=== PATIENT | male | born 1960 | race Caucasian/White ===

== ENCOUNTER 2020-07-10 17:50 | Emergency (ER) | payer BC ==
[2020-07-10] MEDS ORDERED: Morphine 2 MG/ML SYRINGE IVPUSH ONE ×2 (18:10→19:37)
[2020-07-10] MEDS ORDERED: Nitroglycerin 0.4 MG Tab.SL SL ONE (18:10)
[2020-07-10] MEDS ORDERED: Aspirin 81 MG Tab.Chew PO ONE (18:10)
[2020-07-10] MEDS: Nitroglycerin 0.4 MG Tab.SL ONE ×2 (18:14→19:36)
[2020-07-10] MEDS: Aspirin 81 MG Tab.Chew ONE ×2 (18:14→19:37)
[2020-07-10] MEDS: Morphine 2 MG/ML SYRINGE ONE ×2 (18:15→19:36)
[2020-07-10] MEDS ORDERED: Heparin Sodium 5,000 Units/ML Vial IVPUSH ONE (18:17)
[2020-07-10] MEDS ORDERED: Sodium Chloride 0.9% 1,000 ML ONE (18:22)
--- NOTE | 2020-07-10 18:24 | EDM.PDOC ---
ED HPI GENERAL MEDICAL PROBLEM - General Chief Complaint: Chest Pain Stated Complaint: fevers, short of breath, elevated troponin Time Seen by Provider: 07/10/20 18:14 Source of Information: Reports: Patient History Limitations: Reports: No Limitations Bilateral Lower Breast Pain Score (Numeric/FACES): 7 - Related Data Allergies Allergy/AdvReac Type Severity Reaction Status Date / Time No Known Allergies Allergy Verified 07/10/20 17:44 ED ROS GENERAL - Review of Systems Review Of Systems: See Below ED EXAM, GENERAL - Physical Exam Exam: See Below General Appearance: Alert, WD/WN, No Apparent Distress Respiratory/Chest: No Respiratory Distress, Decreased Breath Sounds Cardiovascular: Normal Peripheral Pulses, Regular Rate, Rhythm, No Edema, No Murmur Neurological: Alert, Oriented Psychiatric: Normal Affect, Normal Mood Skin Exam: Warm, Dry, Intact EKG INTERPRETATION EKG Date: 07/10/20 Time: 19:42 (repeat EKG, no changes) Course - Vital Signs Last Recorded V/S: Last Vital Signs Temp 102 F H 07/10/20 19:19 Pulse 82 07/10/20 19:19 Resp 16 07/10/20 19:19 BP 152/92 H 07/10/20 19:19 Pulse Ox 95 07/10/20 19:19 - Orders/Labs/Meds Orders: Active Orders 24 hr Category Date Time Status CULTURE BLOOD [BC] Stat Lab 07/10/20 19:10 Received CULTURE BLOOD [BC] Stat Lab 07/10/20 19:23 Received Blood Culture x2 Reflex Set [OM.PC] Stat Oth 07/10/20 18:37 Ordered Labs: Laboratory Tests 07/10/20 07/10/20 Range/Units 17:50 19:10 Sodium 140 (136-145) mmol/L Potassium 3.9 (3.3-5.3) mmol/L Chloride 103 (98-115) mmol/L Carbon Dioxide 27.6 (21.0-32.0) mmol/L Anion Gap 13.3 (5-15) mmol/L BUN 10 (6-25) mg/dL Creatinine 0.97 (0.51-1.17) mg/dL Est Cr Clr Drug Dosing 88.89 mL/min Estimated GFR (MDRD) > 60 mL/min Glucose 135 H (75 - 99) mg/dL Lactic Acid 0.7 (0.4-2.0) mmol/L Calcium 8.8 (8.7-10.3) mg/dL Total Bilirubin 0.3 (0.2-1.0) mg/dL AST 19 (15-37) U/L ALT 50 (12-78) U/L Alkaline Phosphatase 71 (46-116) IU/L Total Protein 7.4 (6.4-8.2) g/dL Albumin 4.10 (3.00-4.80) g/dL Meds: Medications Discontinued Medications Generic Name Dose Route Start Last Admin Trade Name Freq PRN Reason Stop Dose Admin Acetaminophen 1,000 mg 07/10/20 19:05 07/10/20 19:05 Tylenol Extra Strength PO 07/10/20 19:06 1,000 mg ONETIME ONE Administration Acetaminophen Confirm 07/10/20 19:03 07/10/20 19:10 Tylenol Extra Strength Administered 07/10/20 19:04 Not Given Dose 1,000 mg .ROUTE .STK-MED ONE Aspirin Confirm 07/10/20 18:03 07/10/20 19:37 Aspirin Administered 07/10/20 18:04 Not Given Dose 324 mg .ROUTE .STK-MED ONE Aspirin 324 mg 07/10/20 18:10 07/10/20 18:14 Aspirin PO 07/10/20 18:11 324 mg ONETIME ONE Administration Ceftriaxone Sodium 1 gm 07/10/20 18:39 07/10/20 19:06 Rocephin IVPUSH 07/10/20 18:40 1 gm ONETIME ONE Administration Doxycycline Hyclate 100 mg 07/10/20 18:38 07/10/20 19:06 Vibramycin PO 07/10/20 18:39 100 mg ONETIME ONE Administration Heparin Sodium (Porcine) 4,000 units 07/10/20 18:17 07/10/20 18:26 Heparin Sodium IVPUSH 07/10/20 18:18 4,000 units ONETIME ONE Administration Heparin Sodium/Dextrose 250 mls @ 10 mls/hr 07/10/20 18:30 07/10/20 18:27 IV 1,000 units/hr TITRATE ASHISH 10 mls/hr Administration Protocol 1,000 UNITS/HR Sodium Chloride 1,000 mls @ 20 mls/hr 07/10/20 18:30 07/10/20 19:06 Normal Saline IV 20 mls/hr ASDIRECTED ASHISH Administration Sodium Chloride Confirm 07/10/20 18:22 07/10/20 18:34 Normal Saline Administered 07/10/20 18:23 Not Given Dose 1,000 mls @ as directed .ROUTE .STK-MED ONE Morphine Sulfate Confirm 07/10/20 18:05 07/10/20 19:36 Morphine Administered 07/10/20 18:06 Not Given Dose 2 mg .ROUTE .STK-MED ONE Morphine Sulfate 2 mg 07/10/20 19:37 07/10/20 19:38 Morphine IVPUSH 07/10/20 19:38 Not Given ONETIME ONE Morphine Sulfate 2 mg 07/10/20 18:10 07/10/20 18:15 Morphine IVPUSH 07/10/20 18:11 2 mg ONETIME ONE Administration Nitroglycerin Confirm 07/10/20 18:06 07/10/20 19:36 Nitrostat Administered 07/10/20 18:07 Not Given Dose 0.4 mg .ROUTE .STK-MED ONE Nitroglycerin 0.4 mg 07/10/20 18:10 07/10/20 18:14 Nitrostat SL 07/10/20 18:11 0.4 mg ONETIME ONE Administration - Re-Assessments/Exams Free Text/Narrative Re-Assessment/Exam: 07/10/20 18:32 ct scan chest returned. report pneumonia LLL, diminished lung lower sounds, sp02 96%, symptoms of inability to take a deep breath, chills starting today and fever now 100.4f. 07/10/20 18:33 07/10/20 19:38 add on labs and abx given, patient stable, still have mild CP, despite Nitro no improvement, does have a fever 102.4f, 1 gram of tylenol po given, heparin infusing, EMS are on their way to transfer patient, repeat EKG. Free Text/Narrative Re-Assessment/Exam: 07/10/20 19:30 received ordered from accepting food server as soon as the CT scan report re turned, blood cultures x2 ordered, sputum culture ordered, 100 mg doxy po x1 and 1 gram ceftriaxone IVP to be given, ASA 325 mg, lactic acid. 07/10/20 19:34 07/10/20 19:44 negative lactic acid. Free Text/Narrative Re-Assessment/Exam: 07/10/20 19:42 please see Christy Olson P for ROS and Physical exam. Departure - Departure Time of Disposition: 18:10 ([facility]) Disposition: DC/Tfer to [facility] Reason for Transfer *Q: Other Condition: Good, Undetermined Clinical Impression: NSTEMI (non-ST elevated myocardial infarction) Pneumonia Qualifiers: Pneumonia type: due to unspecified organism Laterality: unspecified laterality Lung location: unspecified part of lung Qualified Code(s): J18.9 - Pneumonia, unspecified organism Referrals: Christy Taylor PA-C [Primary Care Provider] - Sepsis Event Note (ED) - Evaluation Reason for Ruling Out Sepsis: fever, chills, pneumonia on CT scan of chest, elevated troponin. - Problem List Review Problem List Initiated/Reviewed/Updated: Yes - My Orders Last 24 Hours: My Active Orders 07/10/20 18:37 Blood Culture x2 Reflex Set [OM.PC] Stat 07/10/20 19:10 CULTURE BLOOD [BC] Stat 07/10/20 19:23 CULTURE BLOOD [BC] Stat - Assessment/Plan Last 24 Hours: My Active Orders 07/10/20 18:37 Blood Culture x2 Reflex Set [OM.PC] Stat 07/10/20 19:10 CULTURE BLOOD [BC] Stat 07/10/20 19:23 CULTURE BLOOD [BC] Stat
[2020-07-10] MEDS ORDERED: Heparin Sodium/D5W 250 ML IV SCH (18:30)
[2020-07-10] MEDS ORDERED: Sodium Chloride 0.9% 1,000 ML IV SCH (18:30)
[2020-07-10] MEDS ORDERED: cefTRIAXone 1 GM Vial IVPUSH ONE (18:39)
[2020-07-10] MEDS ORDERED: Acetaminophen 500 MG Tab ONE (19:03)
[2020-07-10] MEDS ORDERED: Acetaminophen 500 MG Tab PO ONE (19:05)
[2020-07-10 19:17] LABS: ANION GAP 13.3 mmol/L (5-15); CHLORIDE,CL 103 mmol/L (98-115); SODIUM,NA 140 mmol/L (136-145)
== END 2020-07-10 19:54 | disposition critical access hospital (66) ==
LOC: KA.ED 17:50
DX: I21.4 Non-ST elevation (NSTEMI) myocardial infarction (principal); J18.9 Pneumonia, unspecified organism
CPT/HCPCS: 36415; 80053; 83605; 87040; 87077; 93005; 96365; 96375; 99284; 99285-25; A9270-GY; J0696; J1644; J2270; J7030

== ENCOUNTER 2021-09-04 08:53 | Day surgery (SDC) | payer BC ==
[2021-09-04] MEDS ORDERED: Sodium Chloride 0.9% 1,000 ML IV SCH (09:00)
[2021-09-04] MEDS ORDERED: Sodium Chloride 0.9% 10 ML Syringe FLUSH PRN (09:00)
[2021-09-04] MEDS ORDERED: Midazolam 1 MG/ML 2 ML SDV ONE (10:18)
--- NOTE | 2021-09-04 10:18 | PCM.PN ---
- General Info Date of Service: 09/04/21 - Review of Systems Systems Review Comment:: 60-year-old male referred for his initial screening colonoscopy. He notes his bowels have been moving satisfactorily but does state that he has had some hemorrhoid bleeding in the past. He denies any known family history of colon cancer. Patient's recent history and physical is reviewed and no significant changes are noted. I have discussed the proposed colonoscopy with the patient. Risks such as but not limited to bleeding and GI injury reviewed. He agrees to proceed. - Patient Data Vitals - Most Recent: Last Vital Signs Temp 97.8 F 09/04/21 09:04 Pulse 57 L 09/04/21 09:04 Resp 16 09/04/21 09:04 BP 153/88 H 09/04/21 09:04 Pulse Ox 95 09/04/21 09:04 Weight - Most Recent: 97.522 kg Lab Results Last 24 Hours: Laboratory Results - last 24 hr 09/04/21 Range/Units 09:15 POC Glucose 140 (70-140) mg/dL Med Orders - Current: Current Medications Sodium Chloride (Normal Saline) 1,000 mls @ 50 mls/hr IV ASDIRECTED ASHISH Last Admin: 09/04/21 09:18 Dose: 50 mls/hr Documented by: Sodium Chloride (Sodium Chloride 0.9% 10 Ml Syringe) 10 ml FLUSH Q8HR PRN PRN Reason: keep vein open - Patient Data Lab Results Last 24 hrs: Laboratory Results - last 24 hr 09/04/21 Range/Units 09:15 POC Glucose 140 (70-140) mg/dL Sepsis Event Note - Focused Exam Vital Signs: Vital Signs Temp Pulse Resp BP Pulse Ox 09/04/21 09:04 97.8 F 57 L 16 153/88 H 95 - Problem List Review Problem List Initiated/Reviewed/Updated: Yes - My Orders Last 24 Hours: My Active Orders 09/03/21 14:19 Resuscitation Status Routine 09/04/21 Breakfast Nothing Per Oral Diet [DIET] 09/04/21 09:00 Patient to Empty Bladder [RC] ASDIRECTED Peripheral IV Care [RC] . DIRECTED Sodium Chloride 0.9% [Normal Saline] 1,000 ml IV ASDIRECTED Sodium Chloride 0.9% [Saline Flush] 10 ml FLUSH Q8HR PRN Peripheral IV Insertion Adult [OM.PC] Routine 09/04/21 10:00 Verify Patient Consent Obtain [RC] ASDIRECTED - Assessment Assessment:: Colon cancer screening - Plan Plan:: Colonoscopy
[2021-09-04] MEDS ORDERED: Propofol 200 MG/20 ML SDV ONE (10:19)
--- NOTE | 2021-09-04 10:55 | PCM.OPNOTE ---
- General Post-Op/Procedure Note Date of Surgery/Procedure: 09/04/21 Operative Procedure(s): Colonoscopy with polypectomy Findings: Small polyps in the sigmoid colon Internal hemorrhoids Pre Op Diagnosis: Colon cancer screening. History of hematochezia Post-Op Diagnosis: Colon polyps. Hemorrhoids Anesthesia Technique: MAC Primary Surgeon: Saman Arnold Pathology: Colon polyp EBL in mLs: 0 Complications: None Condition: Good
--- NOTE | 2021-09-04 12:28 | OR ---
DATE OF SURGERY: 09/04/2021 SURGEON: Saman Arnold MD PREOPERATIVE DIAGNOSIS: Colon cancer screening, history of hematochezia. POSTOPERATIVE DIAGNOSIS: Colon polyps, hemorrhoids. OPERATION PERFORMED: Colonoscopy with polypectomy. INDICATIONS FOR SURGERY: This 60-year-old male is referred for his initial screening colonoscopy. The patient does note an intermittent history of rectal bleeding. FINDINGS: In the sigmoid colon, 18 cm from the anal verge, there are two small polyps, a 5 mm sessile polyp and a 3 mm sessile polyp. The remainder of the colon appears normal, as does the terminal ileum. There are [id number] sized internal hemorrhoids noted, but without active bleeding at this time. PROCEDURE: The patient was taken to the operating room. He was given intravenous sedation, and with him in the left lateral decubitus position, digital rectal exam was performed showing no rectal masses. The Olympus colonoscope was inserted into the rectum and retroflexed examination of the rectal canal was performed. The scope was then carefully advanced under direct visualization. In the sigmoid region the above-described polyps were identified. The larger polyp was removed with a cautery snare and retrieved into a polyp trap. The smaller polyp was destroyed with cautery. The scope was carefully advanced through the entire length of the colon until the cecum was reached. Cecal acquisition was confirmed by noting normal internal cecal anatomy including the appendiceal orifice and the ileocecal valve. The light was also noted to transilluminate the abdominal wall in the right lower quadrant. The ileocecal valve was cannulated and the terminal ileum examined and appeared normal. The scope was then slowly withdrawn sequentially re- examining the colonic segments until the entire colon and rectum had been fully examined. The scope was removed, and the patient was taken from the operating room in satisfactory condition. ESTIMATED BLOOD LOSS: Zero. COMPLICATIONS: None. PROGNOSIS: Good. /[id number]/MODL
== END 2021-09-04 12:05 | disposition home or self-care (01) ==
LOC: KA.SDS 08:53
PROVIDERS: ATTEND Surgery
DX: Z12.11 Encounter for screening for malignant neoplasm of colon (principal); K63.5 Polyp of colon; K64.8 Other hemorrhoids; E11.9 Type 2 diabetes mellitus without complications; I10 Essential (primary) hypertension; E78.5 Hyperlipidemia, unspecified; F17.210 Nicotine dependence, cigarettes, uncomplicated; Z79.899 Other long term (current) drug therapy; Z79.84 Long term (current) use of oral hypoglycemic drugs
CPT/HCPCS: 00812; 45385; 82947; J2250; J2704; J7030

== ENCOUNTER 2024-08-31 07:58 | Day surgery (SDC) | payer BC ==
[2024-08-31] MEDS ORDERED: Sodium Chloride 0.9% 10 ML Syringe FLUSH PRN (08:00)
[2024-08-31] MEDS: Sodium Chloride 0.9% 1,000 ML IV SCH (08:06)
[2024-08-31] MEDS ORDERED: Midazolam 1 MG/ML 2 ML SDV ONE (08:50)
[2024-08-31] MEDS ORDERED: Propofol 200 MG/20 ML SDV ONE (08:51)
== END 2024-08-31 10:58 | disposition home or self-care (01) ==
LOC: KA.SDS 07:58
PROVIDERS: ATTEND Surgery
DX: K60.2 Anal fissure, unspecified (principal); K64.4 Residual hemorrhoidal skin tags
CPT/HCPCS: 00811; 82947; J2250; J2704; J3490; J7030